=== PATIENT | male | born 1980 | race Caucasian/White ===

== ENCOUNTER 2018-08-02 21:47 | Emergency (ER) | payer OTHER ==
[~2018-08-02] VITALS: Ht 170.2 cm; Wt 84.8 kg
== END 2018-08-02 22:39 | disposition home or self-care (01) ==
LOC: ER 21:47
DX: L02.214 Cutaneous abscess of groin (principal)

== ENCOUNTER 2020-09-16 13:13 | Emergency (ER) | payer OTHER ==
[~2020-09-16] VITALS: Ht 170.2 cm; Wt 80.3 kg
[2020-09-16] MEDS ORDERED: PROAIR HFA8.5 GM IH (13:20)
[2020-09-16] MEDS ORDERED: KETO10TA2 PO (16:00)
== END 2020-09-16 16:12 | disposition home or self-care (01) ==
LOC: ER 13:13
DX: R59.1 Generalized enlarged lymph nodes (principal)

== ENCOUNTER 2021-03-11 08:07 | Emergency (ER) | payer OTHER ==
[~2021-03-11] VITALS: Ht 170.2 cm; Wt 83.9 kg
[~2021-03-11 08:07] MED LIST: KETO10TA2 PO; PROAIR HFA8.5 GM IH
[2021-03-11] MEDS ORDERED: MUCINEX DM ER1 EAC1 PO (11:59)
[2021-03-11] MEDS ORDERED: IBU600 MG PO (11:59)
[2021-03-11] MEDS ORDERED: TESSALON PERLE100 M1 PO (11:59)
[2021-03-11] MEDS ORDERED: IPRAT-ALBUT 0.5-3 ML IH (11:59)
[2021-03-11] MEDS ORDERED: MEDROLPACK PO (11:59)
== END 2021-03-11 12:20 | disposition home or self-care (01) ==
LOC: ER 08:07
DX: J06.9 Acute upper respiratory infection, unspecified (principal); B34.9 Viral infection, unspecified; Z03.818 Encounter for observation for suspected exposure to other biological agents ruled out